=== PATIENT | female | born 1950 | race Caucasian/White ===

== ENCOUNTER 2017-04-28 20:59 | Emergency (ER) | END 2017-04-29 01:20 | disposition left against medical advice (07) | LOC: ER 20:59 | DX: Z53.9 Procedure and treatment not carried out, unspecified reason (principal); R10.9 Unspecified abdominal pain ==

== ENCOUNTER → 2019-05-11 | Outpatient (CLI) | payer MEDICARE, OTHER ==
--- NOTE | 2019-05-11 16:21 | RADIOLOGY REPORT (SQ) ---
EXAM DESCRIPTION: MRI LT LOWER JOINT WITHOUT COMPLETED DATE/TIME: 05/11/2019 3:05 pm REASON FOR STUDY: LEFT KNEE PAIN (M25.562) M25.562 PAIN IN LEFT KNEE COMPARISON: None. TECHNIQUE: Leftknee images acquired and stored on PACS. Multiplanar images include fat sensitive se quences as T1, water sensitive sequences as FST2 or STIR, cartilage sensitive sequences as FSPD, and gradient echo sequences. LIMITATIONS: None. FINDINGS: JOINT AND BURSAE: Moderate suprapatellar knee joint effusion. Small Hobbs's cyst is prese nt. BONE CORTEX AND MARROW: There is mild subcortical edema in the medial tibial plateau on coronal image 18, without depression of the articular surface. This likely represents a bone contusion. The emil cent medial meniscus has a complete split in this area ACL: Torn, best shown on sagittal images 11-14 PCL: Intact. MCL: Intact. No periligamentous edema or fluid. LCL: Intact. No periligamentous edema or fluid. MEDIAL MENISCUS: Complete break in the medial meniscus mid body on coronal image 5. Elsewhere there is a diffuse horizontal tear throughout the mid body and posterior horn best shown on coronal images 14-20 and sagittal images 4-8. LATERAL MENISCUS: Small horizontal tear mid body lateral meniscus without parameniscal cyst on hernandez l image 15. MEDIAL COMPARTMENT: No significant chondromalacia. There is a bone contusion along the mid 3rd, medi al tibial plateau without depressed osteochondral fracture LATERAL COMPARTMENT: Cartilage preserved. No bone bruises or reactive marrow edema. No osteophytes. 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 No subchondral cys ts. Medial and lateral retinacula intact. EXTENSOR MECHANISM: Intact. Quadriceps and patella tendons normal. SOFT TISSUES: Adjacent muscles and subcutaneous tissues normal. Normal flow void in popliteal artery and vein. OTHER: No other significant finding. IMPRESSION: Torn anterior cruciate ligament Torn medial meniscus Bone contusion medial tibial plateau TECHNICAL DOCUMENTATION: JOB ID: [id number] [employer]- All Rights Reserved Reading location - IP/workstation name: [email or web address]
== END ==
LOC: RAD 13:43
PROVIDERS: ATTEND Physician Assistant
DX: M25.562 Pain in left knee (principal); S83.512A Sprain of anterior cruciate ligament of left knee, initial encounter; S83.242A Other tear of medial meniscus, current injury, left knee, initial encounter; X58.XXXA Exposure to other specified factors, initial encounter; M22.42 Chondromalacia patellae, left knee